=== PATIENT | female | born 1975 | race Caucasian/White ===

== ENCOUNTER → 2017-03-29 | Outpatient (CLI) | payer OTHER | LOC: BRMIMAGING 08:08 | DX: Z12.31 Encounter for screening mammogram for malignant neoplasm of breast (principal) | CPT/HCPCS: G0202 ==

== ENCOUNTER → 2018-04-06 | Outpatient (CLI) | payer OTHER | LOC: BRMIMAGING 08:26 | DX: Z12.31 Encounter for screening mammogram for malignant neoplasm of breast (principal) ==